=== PATIENT | female | born 1955 | race Caucasian/White ===

== ENCOUNTER 2018-05-05 09:20 | Day surgery (SDC) | payer OTHER ==
[2018-05-05] MEDS ORDERED: Lactated Ringer's 500 ML IV ONE (09:44)
[2018-05-05 10:05] VITALS: TEMP 96.8
[2018-05-05] MEDS ORDERED: Propofol 10 mg/ml Inj (20 ML) ONE (10:50)
[2018-05-05 12:07] VITALS: BP 130/64; PULSE 64; RESP 12; O2SAT 99
== END 2018-05-05 13:00 | disposition home or self-care (01) ==
LOC: H.ENDO 09:20
PROVIDERS: ATTEND Internal Medicine Gastroenterology
DX: K31.7 Polyp of stomach and duodenum (principal); R10.13 Epigastric pain; M19.90 Unspecified osteoarthritis, unspecified site; J45.909 Unspecified asthma, uncomplicated; M32.9 Systemic lupus erythematosus, unspecified; F32.9 Major depressive disorder, single episode, unspecified; R06.83 Snoring; K29.50 Unspecified chronic gastritis without bleeding
CPT/HCPCS: 43239; 88305; J2704; J7120